=== PATIENT | male | born 1975 | race African-American/Black ===

== ENCOUNTER 2019-03-25 04:57 | Emergency (ER) | payer MEDICAID ==
[~2019-03-25] VITALS: Ht 170.2 cm; Wt 91.0 kg
[2019-03-25 05:45] LABS: BASOPHILS % 0.6 % (0.0-2.0); EOSINOPHILS % 1.2 % (0.0-5.0); HEMATOCRIT. 41.9 % (42.0-52.0); HEMOGLOBIN. 14.4 g/dL (14.0-18.0); LYMPHOCYTES % 37.3 % (20.0-50.0); MEAN CORPUSCULAR HEMOGLOBIN 32.8 pg (28.0-32.0); MEAN CORPUSCULAR VOLUME 95.9 fL (80.0-94.0); MEAN PLATELET VOLUME 7.3 fl (7.4-10.4); MONOCYTES % 7.4 % (2.0-8.0); NEUTROPHILS % 53.5 % (40.0-76.0); PLATELET 354 x1000/uL (130-400); RED BLOOD CELL COUNT 4.37 mill/uL (4.7-6.1); RED CELL DISTRIBUTION WIDTH 13.3 % (11.6-14.6)
[2019-03-25 05:48] LABS: CHLORIDE 106 mEq/L (98-107)
[2019-03-25 05:53] LABS: ETHANOL BLOOD < 10 mg/dL
[2019-03-25 05:54] LABS: CLARITY URINE CLEAR (CLEAR); COLOR URINE YELLOW (YELLOW); KETONES URINE NEGATIVE (NEGATIVE); LEUKOCYTE ESTERASE URINE NEGATIVE (NEGATIVE); NITRITE URINE NEGATIVE (NEGATIVE); OCCULT BLOOD URINE NEGATIVE (NEGATIVE); PH URINE 7.5 (4.5-8.0); PROTEIN URINE NEGATIVE (NEGATIVE); SPECIFIC GRAVITY URINE 1.013 (1.005-1.030); UROBILINOGEN URINE 0.2 E.U./dL (0.2-1.0)
[2019-03-25 06:04] LABS: *AMPHETAMINES SCREEN URINE NEGATIVE (NEGATIVE)
[2019-03-25 06:05] LABS: *BARBITURATES SCREEN URINE NEGATIVE (NEGATIVE); *BENZODIAZEPINES SCREEN URINE PRESUMTIVE POSITIVE (NEGATIVE); *COCAINE SCREEN URINE NEGATIVE (NEGATIVE); METHADONE URINE SCREEN NEGATIVE (NEGATIVE); OPIATES URINE SCREEN NEGATIVE (NEGATIVE); PHENCYCLIDINE URINE SCREEN NEGATIVE (NEGATIVE)
[2019-03-25 06:06] LABS: CANNABINOID URINE SCREEN NEGATIVE (NEGATIVE)
[2019-03-25] MEDS ORDERED: QUETIAPINE FUMARATE 50MG TABLET PO STA (06:20)
[2019-03-25] MEDS ORDERED: ACETAMINOPHEN 325MG TABLET PO ONE (06:30)
[2019-03-25] MEDS ORDERED: LORAZEPAM 1MG TABLET PO ONE (09:45)
[2019-03-25] MEDS: OLANZAPINE 10MG TABLET PO SCH ×2 (14:42→20:50)
[2019-03-25] MEDS: LORAZEPAM 1MG TABLET PO SCH ×3 (14:42→20:50)
[2019-03-25] MEDS: DIVALPROEX SODIUM 500MG ER TABLET PO SCH (14:42)
[2019-03-26] MEDS: DIVALPROEX SODIUM 500MG ER TABLET PO SCH ×3 (09:37→15:09)
[2019-03-26] MEDS: OLANZAPINE 10MG TABLET PO SCH (09:37)
[2019-03-26 15:35] VITALS: BP 129/86
== END 2019-03-26 16:01 ==
LOC: ER 05:20
DX: R45.851 Suicidal ideations (principal); I10 Essential (primary) hypertension
CPT/HCPCS: 36415; 80053; 80165; 80305; 80320; 81003; 83690; 85025; 99285; Z7610; A4315; G0480

== ENCOUNTER 2023-06-14 19:33 | Emergency (ER) | payer MEDICAID ==
[~2023-06-14] VITALS: Ht 172.7 cm; Wt 100.0 kg
[2023-06-14 19:35] VITALS: O2SAT 99
[2023-06-14] MEDS: ONDANSETRON 4MG ODT PO STA (20:31)
[2023-06-14] MEDS: MAGNESIUM/ALUMINUM HYDROXIDE/SIMETHICONE 30ML UDC PO STA (20:31)
[2023-06-14 20:33] LABS: BASOPHILS % 0.7 % (0.0-2.0); EOSINOPHILS % 0.6 % (0.0-5.0); HEMATOCRIT. 41.4 % (42.0-52.0); HEMOGLOBIN. 14.1 g/dL (14.0-18.0); MEAN CORPUSCULAR HEMOGLOBIN 32.5 pg (28.0-32.0); MEAN CORPUSCULAR VOLUME 95.5 fL (80.0-94.0); MEAN PLATELET VOLUME 7.9 fl (7.4-10.4); MONOCYTES % 4.8 % (2.0-8.0); NEUTROPHILS % 60.9 % (40.0-76.0); PLATELET 365 x1000/uL (130-400); RED BLOOD CELL COUNT 4.34 mill/uL (4.7-6.1); RED CELL DISTRIBUTION WIDTH 13.8 % (11.6-14.6); WHITE BLOOD COUNT 6.7 x1000/uL (4.5-11.0)
[2023-06-14 20:45] LABS: ALANINE AMINOTRANSFERASE 111 IU/L (10-49); ASPARTATE AMINOTRANSFERASE 59 IU/L (<34); BILIRUBIN TOTAL 0.5 mg/dL (0.1-1.0); CALCIUM 9.9 mg/dL (8.7-10.4); CARBON DIOXIDE 24 mEq/L (21-32); CHLORIDE 106 mEq/L (98-107); CREATININE 1.1 mg/dL (0.6-1.3); GLUCOSE 135 mg/dL (70-105); POTASSIUM 3.6 mEq/L (3.5-5.1); PROTEIN TOTAL 7.7 g/dL (6.0-8.3); SODIUM 139 mEq/L (136-145); UREA NITROGEN BLOOD 7 mg/dL (9-23)
[2023-06-14] MEDS: DICYCLOMINE 10 MG/5 ML ORAL SYR PO STA (21:06)
[2023-06-14] MEDS: ACETAMINOPHEN 325MG TABLET PO ONE (21:06)
[2023-06-14] MEDS ORDERED: LOPE1LIQ42 MT (22:38)
[2023-06-14 23:05] VITALS: TEMP 98.1
[2023-06-14 23:56] VITALS: BP 120/80; PULSE 70; RESP 19
[2023-06-14] MEDS: KETOROLAC 60MG/2ML VIAL IM ONE (23:56)
== END 2023-06-14 23:07 | disposition home or self-care (01) ==
LOC: ER 19:43
DX: R14.0 Abdominal distension (gaseous) (principal); R11.2 Nausea with vomiting, unspecified; I10 Essential (primary) hypertension; Z68.33 Body mass index [BMI] 33.0-33.9, adult
CPT/HCPCS: 99284; 80053; 83690; 85025; 36415; 96372; Q0162; J1885

== ENCOUNTER 2024-12-06 03:43 | Emergency (ER) | payer MEDICARE, MEDICAID ==
[~2024-12-06] VITALS: Ht 170.2 cm; Wt 100.0 kg
[~2024-12-06 03:43] MED LIST: LOPE1LIQ42 MT
[2024-12-06 03:46] VITALS: O2SAT 100
[2024-12-06 05:12] VITALS: BP 132/86; PULSE 93; RESP 16; TEMP 36.6; O2SAT 96
== END 2024-12-06 05:38 | disposition home or self-care (01) ==
LOC: ER 03:43
DX: F41.9 Anxiety disorder, unspecified (principal); R42 Dizziness and giddiness; I10 Essential (primary) hypertension
CPT/HCPCS: 93005; 99283